=== PATIENT | female | born 1945 | race Caucasian/White ===

== ENCOUNTER 2018-12-07 17:06 | Emergency (ER) | payer MEDICARE, MEDICAID ==
--- NOTE | 2018-12-07 18:14 | CT ---
[id number] CT/CT Head WO IV EXAM: CT Head WO IV CLINICAL DATA: FALL, STRUCK HEAD AND FACE COMPARISON STUDY: July 2017. FINDINGS: Acute comminuted fracture of the bilateral nasal bones as well as the associated anterior bony nasal septum. Small amount of blood products within the underlying nasal cavities. Laceration and contusion in the overlying soft tissues. No other facial bone abnormality. No calvarial fracture. IMPRESSION: Soft tissue laceration and contusion over the nasal bone with underlying comminuted nasal bone fracture, described above. No calvarial fracture or acute intracranial hemorrhage. Andrew Dewitt MD 12/07/18 1814 Thank you for allowing us to participate in the care of your patient.
--- NOTE | 2018-12-07 20:34 | EDM.PDOC ---
ED HPI GENERAL MEDICAL PROBLEM - General Chief Complaint: Laceration Stated Complaint: FELL Time Seen by Provider: 12/07/18 17:08 Source of Information: Reports: Patient History Limitations: Reports: No Limitations - History of Present Illness INITIAL COMMENTS - FREE TEXT/NARRATIVE: Pt. presents to ER with complaints of pain to her nose. The patient fell against the door, stiking her nose. Pt. has a history of developmental delay and resides in a [facility]. Pt. had a fall in 2017 at which time she also severely fractured her nose. Pt. denies any LOC. No headache. No neck pain. Denies any numbness/tingling in extremities. No chest pain or shortness of breath. Onset: Today Onset Date: 12/07/18 Location: Reports: Face Quality: Reports: Ache Severity: Moderate - Related Data Allergies Allergy/AdvReac Type Severity Reaction Status Date / Time No Known Allergies Allergy Verified 12/07/18 17:18 Home Meds: Home Meds Enalapril [Vasotec] 10 mg PO DAILY 04/27/14 [History] Escitalopram [Lexapro] 20 mg PO DAILY 04/27/14 [History] Multivitamin [Multi Vitamin Daily] 1 each PO DAILY 04/27/14 [History] Oxybutynin Chloride [Ditropan Xl] 10 mg PO TID 04/27/14 [History] Psyllium [Metamucil] 1 tbsp PO DAILY 04/27/14 [History] hydroCHLOROthiazide [Hydrochlorothiazide] 25 mg PO DAILY 04/27/14 [History] Past Medical History HEENT History: Reports: Impaired Vision, Macular Degeneration Cardiovascular History: Reports: High Cholesterol, Hypertension Gastrointestinal History: Reports: Chronic Diarrhea Genitourinary History: Reports: Urinary Incontinence Psychiatric History: Reports: Anxiety, Other (See Below) 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, mild mental retardation Social & Family History - Tobacco Use Smoking Status *Q: Never Smoker ED ROS GENERAL - Review of Systems Review Of Systems: See Below Constitutional: Reports: No Symptoms HEENT: Reports: Nosebleed, Nose Pain Respiratory: Reports: No Symptoms Cardiovascular: Reports: No Symptoms Endocrine: Reports: No Symptoms GI/Abdominal: Reports: No Symptoms : Reports: No Symptoms Musculoskeletal: Reports: No Symptoms Skin: Reports: No Symptoms Neurological: Reports: No Symptoms Psychiatric: Reports: No Symptoms Hematologic/Lymphatic: Reports: No Symptoms Immunologic: Reports: No Symptoms ED EXAM, SKIN/RASH Exam: See Below Exam Limited By: No Limitations General Appearance: Alert, No Apparent Distress, Anxious Eye Exam: Bilateral Eye: EOMI, Normal Fundi, Normal Inspection, PERRL Ears: Normal External Exam Nose: Other (dried blood in both nares. No evidence of obvious bony trauma was visualized. Several superficial abrasions/lacerations noted to bridge of nose.) Throat/Mouth: Normal Inspection, Normal Lips, Normal Teeth (No obvious oral trauma. She does have some blood in her mouth, likely from her epistaxis.), Other Head: Atraumatic Neck: Normal Inspection, Supple, Non-Tender, Full Range of Motion Respiratory/Chest: No Respiratory Distress, Lungs Clear, Normal Breath Sounds, No Accessory Muscle Use, Chest Non-Tender Cardiovascular: Normal Peripheral Pulses, Regular Rate, Rhythm, No Edema, No Gallop, No JVD, No Murmur, No Rub Peripheral Pulses: 3+: Radial (L), Radial (R) GI/Abdominal: Normal Bowel Sounds, Soft, Non-Tender, No Organomegaly, No Distention, No Abnormal Bruit, No Mass (Female) Exam: Deferred Rectal (Female) Exam: Deferred Back Exam: Normal Inspection, Full Range of Motion, NT Extremities: Normal Inspection, Normal Range of Motion, Non-Tender, No Pedal Edema, Normal Capillary Refill Neurological: Alert, Oriented, CN II-XII Intact, Normal Cognition, Normal Gait, Normal Reflexes, No Motor/Sensory Deficits Psychiatric: Normal Affect, Normal Mood Skin: Warm, Dry, Intact Course - Vital Signs Last Recorded V/S: Last Vital Signs Temp 37.1 C 12/07/18 17:08 Pulse 82 12/07/18 17:08 Resp 18 12/07/18 17:08 BP 169/82 H 12/07/18 17:08 Pulse Ox 96 12/07/18 17:08 - Orders/Labs/Meds Orders: Active Orders 24 hr Category Date Time Status Max Facial Sinus wo Cont [CT] Stat Exams 12/07/18 17:22 Taken - Radiology Interpretation Free Text/Narrative:: CT facial bones revealed a comminuted bilateral nasal bone fracture. Departure - Departure Time of Disposition: 17:08 Disposition: Home, Self-Care 01 Condition: Good Clinical Impression: Nasal bone fractures - Discharge Information Instructions: Nasal Fracture, [id number] Referrals: Vignesh Loya MD [Primary Care Provider] - Forms: ED Department Discharge Additional Instructions: Follow-up with Dr. Kong on Sunday. Call [phone] to set up an appointment. Do not allow her to blow her nose. It is OK to ice the area if she will tolerate it. Tylenol and ibuprofen for discomfort. - My Orders Last 24 Hours: My Active Orders 12/07/18 17:22 Max Facial Sinus wo Cont [CT] Stat - Assessment/Plan Last 24 Hours: My Active Orders 12/07/18 17:22 Max Facial Sinus wo Cont [CT] Stat Plan: Follow-up with Dr. Kong on Sunday. Call [phone] to set up an appointment. Do not allow her to blow her nose. It is OK to ice the area if she will tolerate it. Tylenol and ibuprofen for discomfort.
--- NOTE | 2018-12-09 08:00 | CT ---
[id number] CT/CT Facial Bones WO IV Exam: CT Facial Bones WO IV Indication:FELL Comparison: July 2017. Discussion: Acute comminuted fracture of the nasal bone, involving the bilateral nasal bones as well as the bony nasal septum. Overlying soft tissue laceration and contusion as well as blood products in the nasal cavity. Small periapical abscess adjacent to the left central maxillary incisor. Mild/moderate changes of paranasal sinusitis. Mastoid air cells are clear. Impression: Acute comminuted nasal bone and anterior bony nasal septum fractures with soft tissue contusion/laceration. Andrew Dewitt MD 12/09/18 0759 Thank you for allowing us to participate in the care of your patient.
== END 2018-12-07 18:33 | disposition home or self-care (01) ==
LOC: VM.ED 17:06
DX: S02.2XXA Fracture of nasal bones, initial encounter for closed fracture (principal); W18.00XA Striking against unspecified object with subsequent fall, initial encounter; Z79.899 Other long term (current) drug therapy
CPT/HCPCS: 70450; 70486; 99283

== ENCOUNTER 2021-07-20 14:03 | Emergency (ER) | payer MEDICARE, MEDICAID ==
[2021-07-20] MEDS ORDERED: Bupivacaine 0.5% 30 ML SDV INJECT PRN (14:09)
[2021-07-20] MEDS ORDERED: Lidocaine 1% 30 ML SDV INJECT ONE (14:09)
--- NOTE | 2021-07-20 15:20 | EDM.PDOC ---
ED HPI GENERAL MEDICAL PROBLEM - General Chief Complaint: Upper Extremity Injury/Pain Stated Complaint: LEFT RING FINGER INJURY Time Seen by Provider: 07/20/21 14:03 Source of Information: Reports: Patient, Other (care staff) - History of Present Illness INITIAL COMMENTS - FREE TEXT/NARRATIVE: Patient comes emergency department today from the clinic for further evaluation of an injury to the left fourth finger. This patient lives at the [facility] [place] and is cognitively delayed. Either on Sunday or Sunday the patient is unsure of the staff from the [facility] is unsure but the patient fell landing on her left hand. She did not complain of any injury at that time. [facility] noted some swelling bruising and some deformity of the left finger. She was therefore brought to the clinic for evaluation. The clinic noted a rather impressive fracture of the proximal phalanx of the left fourth finger that was quite displaced and angulated and the patient was unable to flex and extend her finger. She was brought to the emergency department for further evaluation. Upon arrival the patient states that she has not taken anything for pain. She although she does complain of mild pain to the left hand. She denies any paresthesias. Left Finger-Ring Pain Score (Numeric/FACES): 2 - Related Data Allergies Allergy/AdvReac Type Severity Reaction Status Date / Time No Known Allergies Allergy Verified 07/20/21 14:29 Home Meds: Home Meds Enalapril [Vasotec] 10 mg PO DAILY 04/27/14 [History] Escitalopram [Lexapro] 20 mg PO DAILY 04/27/14 [History] Multivitamin [Multi Vitamin Daily] 1 each PO DAILY 04/27/14 [History] Oxybutynin Chloride [Ditropan Xl] 10 mg PO TID 04/27/14 [History] Psyllium [Metamucil] 1 tbsp PO DAILY 04/27/14 [History] hydroCHLOROthiazide [Hydrochlorothiazide] 25 mg PO DAILY 04/27/14 [History] Past Medical History HEENT History: Reports: Impaired Vision, Macular Degeneration Cardiovascular History: Reports: High Cholesterol, Hypertension Gastrointestinal History: Reports: Chronic Diarrhea Genitourinary History: Reports: Urinary Incontinence Psychiatric History: Reports: Anxiety, Other (See Below) 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 ED EXAM, GENERAL - Physical Exam Exam: See Below Exam Limited By: Other (Chronic cognitive delay impaired) General Appearance: Alert, WD/WN, No Apparent Distress Respiratory/Chest: No Respiratory Distress Cardiovascular: Normal Peripheral Pulses, Regular Rate, Rhythm Peripheral Pulses: 2+: Radial (L), Radial (R) Extremities: No: Normal Inspection (She has quite a bit of swelling and bruising on the proximal phalanx as well as the MPJ joint of the left hand. She is unable to flex and extend the finger. At any of the DIP PIP or MPJ point CMS is otherwise intact. The rest of the hand is unremarkable. ) Neurological: Alert, Oriented Psychiatric: Normal Affect, Normal Mood Skin Exam: Warm, Dry, Intact, Normal Color, No Rash ED TRAUMA EXTREMITY PROCEDURES - Splinting Left Upper Extremity Splint Site: left hand wrist Pre-Procedure NV Status: Normal Post-Procedure NV Status: Normal Splint Material: Fiberglass Splint Design: Other (Dorsal and volar short arm splint with stockinette well padded to the tip of the fingers in a position of neutral after attempted reduction. ) Applied & Form Fitted By: Provider Provider Post-Splint Application NV Check: NV Status Normal, Good Position Course - Vital Signs Last Recorded V/S: Last Vital Signs Temp 97.0 F 07/20/21 14:08 Pulse 74 07/20/21 14:08 Resp 18 07/20/21 14:08 BP 143/49 H 07/20/21 14:08 Pulse Ox 92 L 07/20/21 14:08 - Orders/Labs/Meds Meds: Medications Discontinued Medications Generic Name Dose Route Start Last Admin Trade Name Freq PRN Reason Stop Dose Admin Bupivacaine HCl 30 ml 07/20/21 14:07/20/21 14:25 Bupivacaine 0.5% 30 Ml Sdv INJECT 30 ml ASDIRECTED PRN Administration Other Lidocaine HCl 30 ml 07/20/21 14:07/20/21 14:25 Lidocaine 1% 30 Ml Sdv INJECT 07/20/21 14:10 30 ml ONETIME ONE Administration - Radiology Interpretation Free Text/Narrative:: Initially the x-rays are reviewed from the [facility] extemporaneously by myself. She has a proximal complete fracture of the proximal phalange E with displacement in the lateral position. Rest of this osseous regions appear to be unremarkable. Postreduction shows acute minimally displaced impacted and angulated fracture involving the base of the fourth proximal phalanx. An avulsion type fracture involving the base of the fifth middle phalanx as well. No other fractures are identified no dislocation. Per radiology postreduction film - Re-Assessments/Exams Free Text/Narrative Re-Assessment/Exam: The clinic had attempted to contact 1 call at [facility] and discussed this case with hand surgery although 1 call is not available at this time due to overrun healthcare situation. I discussed with the patient that this angulated fracture with the reduced range of motion should be attempted to be reduced. Risk and benefits of an isolated fracture block digital block were explained to the patient and her caregiver. Verbal consent was obtained. 1% lidocaine without epinephrine and 0.5% bupivacaine without epinephrine was mixed in a 50-50 fashion. The area of the left fourth MPJ joint was cleansed with iodine and allowed to dry the appropriate time period. I then injected approximately 4 mils of the above solution at the site of the fracture as well as a digital block. Patient tolerated the procedure well. No bleeding. I then attempted with manual traction manipulation and distraction to reduce the fracture. Multiple attempts were completed with multiple postreduction x-rays with some improvement. I was able to feel good reduction and straightening of the finger although quickly subluxed on its own again. Attempted reduction also with finger traps and with manual traction and weight attempted to keep the reduction in place although the reduction did not stay. Quickly subluxed again. There is no breaks in the skin. The patient tolerated the procedure well. She is able to flex at the MPJ joint as well as the DIP and PIP joints now. It is minimally displaced at this time. I again attempted to hand surgery through 1 call at [facility] although they are unavailable due to overrun of the current health care situation. I did contact the hand clinic and was able to get a follow-up for her on Sunday they will contact her tomorrow for the time after they review the films. Patient was placed in a dorsal and volar splint with the hand in the beer can position. CMS was intact after application. She does not want anything more for pain other than Tylenol and ibuprofen. Discharge directions as below are explained to the patient and her caregiver they are comfortable with this plan and their questions are answered. Departure - Departure Time of Disposition: 15:11 Disposition: Home, Self-Care 01 Clinical Impression: Proximal phalanx fracture of finger Qualifiers: Encounter type: initial encounter Finger: ring finger Fracture type: closed Fracture alignment: displaced Laterality: left Qualified Code(s): S62.615A - Displaced fracture of proximal phalanx of left ring finger, initial encounter for closed fracture - Discharge Information Instructions: RICE Therapy for Routine Care of Injuries, [id number], Finger Fracture, Adult, [id number], Cast or Splint Care, Adult, [id number], Pain Medicine Instructions, [id number] Referrals: Lorene Veras MD [Primary Care Provider] - Forms: ED Department Discharge Additional Instructions: Splint on at all times. Tylenol and or Ibuprofen as needed for pain. RICE therapy as per discharge instructions. Do not get the splint wet. Try to ice as much possible the next 3 days. Return to the ED if new or worsening symptoms. Follow up with [facility] they will call you tomorrow or sunday for follow up plans. If you dont hear from them by noon on sunday call them at [phone] Sepsis Event Note (ED) - Focused Exam Vital Signs: Vital Signs Temp Pulse Resp BP Pulse Ox 07/20/21 14:08 97.0 F 74 18 143/49 H 92 L
--- NOTE | 2021-07-20 15:27 | CR ---
[id number] RAD/RAD Hand Left 2V EXAM: 2 VIEWS LEFT HAND. INDICATION: POST REDUCTION. COMPARISON: None. DISCUSSION: Acute minimally displaced impacted and angulated fracture involving the base of the 4th proximal phalanx. Avulsion type fracture involving the base of the 5th middle phalanx. No other fractures are identified. No dislocation. IMPRESSION: 1. As above. David Morales DO 07/20/21 1524 Thank you for allowing us to participate in the care of your patient.
== END 2021-07-20 15:27 | disposition home or self-care (01) ==
LOC: VM.ED 14:03
DX: S62.615A Displaced fracture of proximal phalanx of left ring finger, initial encounter for closed fracture (principal); I10 Essential (primary) hypertension; W18.39XA Other fall on same level, initial encounter
CPT/HCPCS: 29125; 73120-LT; 99283; 99283-25; J3490

== ENCOUNTER 2022-09-03 19:37 | Emergency (ER) | payer MEDICARE, MEDICAID ==
[2022-09-03 20:57] LABS: CHLORIDE,CL 93 mmol/L (98-107)
[2022-09-03 20:59] LABS: ESTIMATED GFR 92 mL/min (>=60)
[2022-09-03 21:00] LABS: SODIUM,NA 127 mmol/L (136-145)
[2022-09-03] MEDS: Sodium Chloride 0.9% 1,000 ML IV SCH (21:30)
== END 2022-09-03 22:00 | disposition home or self-care (01) ==
LOC: VM.ED 19:37
DX: E87.1 Hypo-osmolality and hyponatremia (principal); I10 Essential (primary) hypertension; Z79.899 Other long term (current) drug therapy
CPT/HCPCS: 36415; 80053; 81003; 82550; 83615; 83735; 84484; 85025; 86140; 93005; 93010; 99284; 99285; J7030

== ENCOUNTER 2022-11-08 11:27 | Observation (INO) | payer MEDICARE, MEDICAID ==
[2022-11-08] MEDS ORDERED: Polyethylene Glycol 3350 Powder 17 GM Packet PO ONE (14:36)
[2022-11-08] MEDS ORDERED: Acetaminophen 325 MG Tab PO PRN (15:07)
[2022-11-08] MEDS: POLYETHYLENE GLYCOL PO SCH ×6 (15:27→21:01)
[2022-11-08] MEDS: OXYBUTYNIN 5 MG PO SCH (20:04)
[2022-11-08] MEDS ORDERED: MELATONIN 3 MG PO SCH (21:00)
[2022-11-08] MEDS ORDERED: traZODone 50 MG Tab (OWN SUPPLY) PO SCH (21:00)
[2022-11-08] MEDS ORDERED: Gabapentin 100 MG Cap (OWN SUPPLY) PO SCH (21:00)
[2022-11-08] MEDS ORDERED: ESCITALOPRAM OXALATE 20 MG PO SCH (21:00)
[2022-11-09 07:09] LABS: ANION GAP 9.4 mmol/L (5-15)
[2022-11-09] MEDS ORDERED: ATORVASTATIN 20 MG PO SCH (09:00)
[2022-11-09] MEDS ORDERED: MULTIVITAMIN PO SCH (09:00)
[2022-11-09] MEDS ORDERED: ENALAPRIL 5 MG PO SCH (09:00)
[2022-11-09] MEDS ORDERED: PSYLLIUM HUSK PO SCH (09:00)
[2022-11-09] MEDS: OXYBUTYNIN 5 MG PO SCH ×2 (10:19→13:22)
[2022-11-11] MEDS ORDERED: Alendronate 70 MG Tab PO SCH (08:00)
== END 2022-11-09 14:00 | disposition home or self-care (01) ==
LOC: VM.MS 13:25
PROVIDERS: ADMIT Family Medicine; ATTEND Family Medicine
DX: K59.00 Constipation, unspecified (principal); N32.81 Overactive bladder; R41.89 Other symptoms and signs involving cognitive functions and awareness; F41.9 Anxiety disorder, unspecified; I10 Essential (primary) hypertension; E78.00 Pure hypercholesterolemia, unspecified; F79 Unspecified intellectual disabilities; Z79.899 Other long term (current) drug therapy
CPT/HCPCS: 36415; 80048; 85025; A9270; G0378; G0379

== ENCOUNTER 2023-03-16 08:05 | Day surgery (SDC) | payer MEDICARE, MEDICAID ==
[~2023-03-16 08:05] MED LIST: Lactated Ringers 1,000 ML IV SCH
[2023-03-16] MEDS ORDERED: Propofol 200 MG/20 ML SDV ONE (10:31)
== END 2023-03-16 12:15 ==
LOC: VM.SDS 08:05
PROVIDERS: ATTEND Student in an Organized Health Care Education/Training Program
DX: D12.3 Benign neoplasm of transverse colon (principal); K63.5 Polyp of colon; K52.9 Noninfective gastroenteritis and colitis, unspecified; K63.89 Other specified diseases of intestine; S52.515A Nondisplaced fracture of left radial styloid process, initial encounter for closed fracture; S52.135A Nondisplaced fracture of neck of left radius, initial encounter for closed fracture; R45.1 Restlessness and agitation; E78.5 Hyperlipidemia, unspecified; I10 Essential (primary) hypertension; F41.9 Anxiety disorder, unspecified; Z79.899 Other long term (current) drug therapy
CPT/HCPCS: 00811; 88305; J2704; J7120

== ENCOUNTER 2023-08-13 21:27 | Emergency (ER) | payer MEDICARE, MEDICAID | END 2023-08-13 22:31 | disposition home or self-care (01) | LOC: VM.ED 21:27 | DX: S01.81XA Laceration without foreign body of other part of head, initial encounter (principal); I10 Essential (primary) hypertension; E78.00 Pure hypercholesterolemia, unspecified; Z79.899 Other long term (current) drug therapy; W19.XXXA Unspecified fall, initial encounter | CPT/HCPCS: 12011; 99283; 99284 ==

== ENCOUNTER 2023-11-26 21:14 | Emergency (ER) | payer MEDICARE, MEDICAID ==
[2023-11-26] MEDS ORDERED: Lidocaine 1% 30 ML SDV INJECT ONE (21:21)
== END 2023-11-26 22:15 ==
LOC: VM.ED 21:14
DX: S01.81XA Laceration without foreign body of other part of head, initial encounter (principal); I10 Essential (primary) hypertension; E78.00 Pure hypercholesterolemia, unspecified; Z79.899 Other long term (current) drug therapy; W50.0XXA Accidental hit or strike by another person, initial encounter
CPT/HCPCS: 12013; 70450; 99283; 99285; J3490

== ENCOUNTER 2025-02-19 13:13 | Inpatient (IN) | payer MEDICARE, MEDICAID ==
[2025-02-19 14:31] LABS: BASOPHILS PERCENT AUTO 0.3 % (0.2-1.2); EOSINOPHILS PERCENT AUTO 0.1 % (0.0-4.0); HEMATOCRIT 36.5 % (33.0-47.0); HEMOGLOBIN 12.5 g/dL (12.0-16.0); IMMATURE GRAN ABSOLUTE AUTO 0.02 x10^3/uL (0.00-0.07); LYMPHOCYTES ABSOLUTE AUTO 1.8 x10^3/uL (1.0-4.8); LYMPHOCYTES PERCENT AUTO 17.8 % (25.0-50.0); MEAN CORPUSCULAR HEMOGLOBIN 32.5 pg (26.0-32.0); MEAN CORPUSCULAR HGB CONC 34.2 g/dL (32.0-36.0); MEAN CORPUSCULAR VOLUME 94.8 fL (78.0-93.0); MONOCYTES ABSOLUTE AUTO 0.8 x10^3/uL (0.0-0.8); NEUTROPHILS ABSOLUTE AUTO 7.6 x10^3/uL (1.8-7.7); NEUTROPHILS PERCENT AUTO 73.6 % (50.0-80.0); PLATELET COUNT,PLT 452 x10^3/uL (130-400); RED BLOOD CELL COUNT 3.85 x10^6/uL (4.00-5.50); WHITE BLOOD CELL COUNT,WBC 10.3 x10^3/uL (4.0-10.0)
[2025-02-19 14:37] LABS: A/G RATIO 0.68; ALANINE AMINOTRANSFERASE,ALT 20 U/L (14-59); ALBUMIN 2.6 g/dL (3.4-5.0); ALKALINE PHOSPHATASE 103 U/L (46-116); ASPARTATE AMNIOTRANSFERASE,AST 22 U/L (15-37); BILIRUBIN TOTAL 0.5 mg/dL (0.2-1.0); BLOOD UREA NITROGEN,BUN 6 mg/dL (7-18); CALCIUM 8.2 mg/dL (8.5-10.1); CARBON DIOXIDE,CO2 29 mmol/L (21-32); CHLORIDE,CL 91 mmol/L (98-107); CREATININE 0.8 mg/dL (0.55-1.02); ESTIMATED GFR 75 mL/min (>=60); GLUCOSE RANDOM 105 mg/dL (70-99); PROTEIN TOTAL,TP 6.4 g/dL (6.4-8.2)
[2025-02-19 14:39] LABS: SODIUM,NA 126 mmol/L (136-145)
[2025-02-19] MEDS: Sodium Chloride 0.9% 1,000 ML IV ONE (14:45)
[2025-02-19 14:46] LABS: LIPASE 31 U/L (19-71); MAGNESIUM 2.1 mg/dL (1.8-2.4)
[2025-02-19] MEDS ORDERED: Ondansetron 4 MG Tab.DIS PO PRN (17:12)
[2025-02-19] MEDS ORDERED: Ondansetron 4 MG/2 ML SDV IV PRN (17:12)
[2025-02-19] MEDS ORDERED: Sodium Chloride 0.9% 1,000 ML IV SCH (17:15)
[2025-02-19] MEDS ORDERED: LOPERAMIDE 2 MG PO PRN (17:26)
[2025-02-19] MEDS: Acetaminophen 325 MG Tab PO SCH (20:31)
[2025-02-19] MEDS: EYELID CLEANSER COMBINATION EYEBOTH SCH (20:39)
[2025-02-19] MEDS: Melatonin 3 MG Tab PO PRN (23:34)
[2025-02-20 07:05] LABS: BASOPHILS PERCENT AUTO 0.2 % (0.2-1.2); EOSINOPHILS PERCENT AUTO 0.2 % (0.0-4.0); HEMATOCRIT 33.5 % (33.0-47.0); HEMOGLOBIN 11.6 g/dL (12.0-16.0); IMMATURE GRAN ABSOLUTE AUTO 0.02 x10^3/uL (0.00-0.07); LYMPHOCYTES ABSOLUTE AUTO 1.4 x10^3/uL (1.0-4.8); LYMPHOCYTES PERCENT AUTO 15.1 % (25.0-50.0); MEAN CORPUSCULAR HGB CONC 34.6 g/dL (32.0-36.0); MEAN CORPUSCULAR VOLUME 95.2 fL (78.0-93.0); MONOCYTES ABSOLUTE AUTO 0.8 x10^3/uL (0.0-0.8); MONOCYTES PERCENT AUTO 8.5 % (2.0-11.0); NEUTROPHILS ABSOLUTE AUTO 6.9 x10^3/uL (1.8-7.7); NEUTROPHILS PERCENT AUTO 75.8 % (50.0-80.0); PLATELET COUNT,PLT 395 x10^3/uL (130-400); RED BLOOD CELL COUNT 3.52 x10^6/uL (4.00-5.50); WHITE BLOOD CELL COUNT,WBC 9.1 x10^3/uL (4.0-10.0)
[2025-02-20 07:25] LABS: CALCIUM 7.9 mg/dL (8.5-10.1); CREATININE 0.6 mg/dL (0.55-1.02); EST CRCL DRUG DOSING (CG) 54.61 mL/min; POTASSIUM,K 3.6 mmol/L (3.5-5.1)
[2025-02-20 07:28] LABS: ANION GAP 12.6 mmol/L (5-15)
[2025-02-20] MEDS ORDERED: PSYLLIUM HUSK PO SCH (09:00)
[2025-02-20] MEDS ORDERED: Non-Formulary Medication 1 Each (Atorvastatin [Lipitor] 20 MG Tablet) PO SCH (09:00)
[2025-02-20] MEDS ORDERED: [UNRECOGNIZED DRUG - OTHER] PO SCH (09:00)
[2025-02-20] MEDS: Gabapentin 100 MG Cap PO SCH (09:53)
[2025-02-20] MEDS: amLODIPine 5 MG Tab PO SCH (09:53)
[2025-02-20] MEDS ORDERED: Acetaminophen 325 MG Tab PO PRN (09:58)
[2025-02-20] MEDS ORDERED: Loperamide 2 MG Cap PO PRN (09:59)
[2025-02-20] MEDS: atorvaSTATin 10 MG Tab PO SCH (10:01)
[2025-02-20] MEDS: Psyllium Husk Powder Sugar Free 5.85 GM Packet PO SCH (10:02)
[2025-02-20 10:50] LABS: APPEARANCE,URINE CLOUDY (CLEAR); BILIRUBIN,URINE SMALL (NEGATIVE); COLOR,URINE YELLOW (YELLOW); GLUCOSE,URINE NEGATIVE (NEGATIVE); KETONES,URINE >=160 mg/dL (NEGATIVE); LEUKOCYTE ESTERASE,URINE LARGE (NEGATIVE); NITRITE,URINE NEGATIVE (NEGATIVE); OCCULT BLOOD,URINE MODERATE (NEGATIVE); PH,URINE 5.5 (5.0-8.0); PROTEIN,URINE 100 mg/dL (NEGATIVE); UROBILINOGEN,URINE 0.2 EU/dL (0.2)
[2025-02-20 10:51] LABS: BACTERIA,URINE OCCASIONAL /HPF (NOT SEEN); SQUAMOUS EPITHELIAL CELLS,UR OCCASIONAL /HPF (NOT SEEN); WBC,URINE 75-100 /HPF (NOT SEEN)
[2025-02-20] MEDS: fluvoxaMINE 100 MG Tab PO SCH (11:31)
[2025-02-20] MEDS: Sulfamethoxazole/Trimethoprim 800-160 MG Tab PO SCH (11:32)
[2025-02-20] MEDS ORDERED: Enoxaparin 40 MG/0.4 ML Syringe SUBCUT SCH (12:00)
[2025-02-21] MEDS ORDERED: amLODIPine 10 MG Tab PO SCH (09:00)
== END 2025-02-20 13:40 | disposition home or self-care (01) | DRG 392 ==
LOC: VM.ED 13:13 → VM.MS 16:14
PROVIDERS: ADMIT Internal Medicine; ATTEND Family Medicine
DX: K56.609 Unspecified intestinal obstruction, unspecified as to partial versus complete obstruction (principal); A08.4 Viral intestinal infection, unspecified; E87.1 Hypo-osmolality and hyponatremia; F03.94 Unspecified dementia, unspecified severity, with anxiety; N39.0 Urinary tract infection, site not specified; Z66 Do not resuscitate; H54.7 Unspecified visual loss; E78.00 Pure hypercholesterolemia, unspecified; K59.09 Other constipation; I10 Essential (primary) hypertension; F42.9 Obsessive-compulsive disorder, unspecified; E86.0 Dehydration; Z79.899 Other long term (current) drug therapy; Z87.81 Personal history of (healed) traumatic fracture; Z98.890 Other specified postprocedural states
CPT/HCPCS: 74176; 80053; 83605; 83690; 83735; 85025; 96360; 99285; J7030; 36415; 80048; 81001; 84295; 87070; 87086; 99284; A9270-GY; C1758; Q3014

== ENCOUNTER 2025-02-27 10:42 | Inpatient (IN) | payer MEDICARE, MEDICAID ==
[2025-02-27] MEDS ORDERED: Sodium Chloride 0.9% 10 ML Syringe FLUSH PRN (11:09)
[2025-02-27] MEDS: Ondansetron 4 MG/2 ML SDV IVPUSH ONE (11:15)
[2025-02-27] MEDS: Lactated Ringers 1,000 ML IV ONE (11:15)
[2025-02-27 11:16] LABS: BASOPHILS PERCENT AUTO 0.2 % (0.2-1.2); EOSINOPHILS PERCENT AUTO 0.2 % (0.0-4.0); HEMATOCRIT 35.5 % (33.0-47.0); HEMOGLOBIN 12.3 g/dL (12.0-16.0); IMMATURE GRAN ABSOLUTE AUTO 0.04 x10^3/uL (0.00-0.07); LYMPHOCYTES ABSOLUTE AUTO 1.5 x10^3/uL (1.0-4.8); LYMPHOCYTES PERCENT AUTO 11.2 % (25.0-50.0); MEAN CORPUSCULAR HEMOGLOBIN 32.5 pg (26.0-32.0); MEAN CORPUSCULAR HGB CONC 34.6 g/dL (32.0-36.0); MEAN CORPUSCULAR VOLUME 93.9 fL (78.0-93.0); NEUTROPHILS ABSOLUTE AUTO 10.5 x10^3/uL (1.8-7.7); NEUTROPHILS PERCENT AUTO 80.1 % (50.0-80.0); PLATELET COUNT,PLT 524 x10^3/uL (130-400); RED BLOOD CELL COUNT 3.78 x10^6/uL (4.00-5.50); WHITE BLOOD CELL COUNT,WBC 13.1 x10^3/uL (4.0-10.0)
[2025-02-27 11:37] LABS: INR 1.1 (0.9-1.1); PROTHROMBIN TIME 11.6 SEC (9.6-12.0); PTT,PARTIAL THROMBOPLSTIN TIME 30.2 SEC (23.5-33.2)
[2025-02-27 11:39] LABS: A/G RATIO 0.69; ALANINE AMINOTRANSFERASE,ALT 24 U/L (14-59); ALBUMIN 2.5 g/dL (3.4-5.0); ALKALINE PHOSPHATASE 109 U/L (46-116); ASPARTATE AMNIOTRANSFERASE,AST 23 U/L (15-37); BILIRUBIN TOTAL 0.3 mg/dL (0.2-1.0); BLOOD UREA NITROGEN,BUN 10 mg/dL (7-18); CALCIUM 7.8 mg/dL (8.5-10.1); CARBON DIOXIDE,CO2 31 mmol/L (21-32); CHLORIDE,CL 86 mmol/L (98-107); CREATININE 0.9 mg/dL (0.55-1.02); GLUCOSE RANDOM 80 mg/dL (70-99); LIPASE 30 U/L (19-71); MAGNESIUM 1.9 mg/dL (1.8-2.4); POTASSIUM,K 3.5 mmol/L (3.5-5.1); PROTEIN TOTAL,TP 6.1 g/dL (6.4-8.2)
[2025-02-27 11:42] LABS: ANION GAP 11.5 mmol/L (5-15); ESTIMATED GFR 65 mL/min (>=60); SODIUM,NA 125 mmol/L (136-145)
[2025-02-27 11:43] LABS: LACTIC ACID 2.4 mmol/L (0.4-2.0)
[2025-02-27] MEDS: HYDROmorphone 0.5 MG/0.5 ML Syringe IVPUSH ONE (12:02)
[2025-02-27 12:13] LABS: APPEARANCE,URINE SLIGHTLY CLOUDY (CLEAR); BILIRUBIN,URINE NEGATIVE (NEGATIVE); COLOR,URINE YELLOW (YELLOW); GLUCOSE,URINE NEGATIVE (NEGATIVE); KETONES,URINE NEGATIVE (NEGATIVE); LEUKOCYTE ESTERASE,URINE NEGATIVE (NEGATIVE); NITRITE,URINE NEGATIVE (NEGATIVE); OCCULT BLOOD,URINE SMALL (NEGATIVE); PROTEIN,URINE NEGATIVE (NEGATIVE); UROBILINOGEN,URINE 0.2 EU/dL (0.2)
[2025-02-27 12:25] LABS: BACTERIA,URINE FEW /HPF (NOT SEEN); SQUAMOUS EPITHELIAL CELLS,UR RARE /HPF (NOT SEEN); WBC,URINE 0-5 /HPF (NOT SEEN)
[2025-02-27 12:26] LABS: MUCUS,URINE MODERATE /LPF (NOT SEEN)
[2025-02-27] MEDS: droPERidol 5 MG/2 ML SDV IVPUSH ONE (12:32)
[2025-02-27] MEDS: Lactated Ringers 1,000 ML IV SCH (14:30)
[2025-02-27] MEDS ORDERED: Ondansetron 4 MG Tab.DIS PO PRN (15:09)
[2025-02-27] MEDS: Acetaminophen 325 MG Tab PO SCH (16:42)
[2025-02-27] MEDS ORDERED: Acetaminophen 325 MG Tab PO SCH (21:00)
[2025-02-28 08:16] LABS: BASOPHILS PERCENT AUTO 0.3 % (0.2-1.2); EOSINOPHILS ABSOLUTE AUTO 0.1 x10^3/uL (0.0-0.5); EOSINOPHILS PERCENT AUTO 0.6 % (0.0-4.0); HEMATOCRIT 32.9 % (33.0-47.0); HEMOGLOBIN 10.9 g/dL (12.0-16.0); IMMATURE GRAN ABSOLUTE AUTO 0.02 x10^3/uL (0.00-0.07); LYMPHOCYTES PERCENT AUTO 12.7 % (25.0-50.0); MEAN CORPUSCULAR HEMOGLOBIN 31.8 pg (26.0-32.0); MEAN CORPUSCULAR HGB CONC 33.1 g/dL (32.0-36.0); MEAN CORPUSCULAR VOLUME 95.9 fL (78.0-93.0); MONOCYTES ABSOLUTE AUTO 0.5 x10^3/uL (0.0-0.8); NEUTROPHILS ABSOLUTE AUTO 6.2 x10^3/uL (1.8-7.7); NEUTROPHILS PERCENT AUTO 80.1 % (50.0-80.0); PLATELET COUNT,PLT 423 x10^3/uL (130-400); RED BLOOD CELL COUNT 3.43 x10^6/uL (4.00-5.50); WHITE BLOOD CELL COUNT,WBC 7.7 x10^3/uL (4.0-10.0)
[2025-02-28 08:38] LABS: A/G RATIO 0.68; ALBUMIN 2.1 g/dL (3.4-5.0); BILIRUBIN TOTAL 0.2 mg/dL (0.2-1.0); CALCIUM 7.6 mg/dL (8.5-10.1); CREATININE 0.6 mg/dL (0.55-1.02); EST CRCL DRUG DOSING (CG) 57.6 mL/min; MAGNESIUM 1.8 mg/dL (1.8-2.4); PROTEIN TOTAL,TP 5.2 g/dL (6.4-8.2)
[2025-02-28] MEDS: Enoxaparin 40 MG/0.4 ML Syringe SUBCUT SCH (09:52)
[2025-02-28] MEDS: Gabapentin 100 MG Cap PO SCH (09:52)
[2025-03-01 08:13] LABS: BASOPHILS PERCENT AUTO 0.1 % (0.2-1.2); EOSINOPHILS PERCENT AUTO 0.5 % (0.0-4.0); HEMATOCRIT 33.9 % (33.0-47.0); HEMOGLOBIN 11.3 g/dL (12.0-16.0); IMMATURE GRAN ABSOLUTE AUTO 0.03 x10^3/uL (0.00-0.07); LYMPHOCYTES ABSOLUTE AUTO 1.1 x10^3/uL (1.0-4.8); LYMPHOCYTES PERCENT AUTO 13.1 % (25.0-50.0); MEAN CORPUSCULAR HEMOGLOBIN 32.5 pg (26.0-32.0); MEAN CORPUSCULAR HGB CONC 33.3 g/dL (32.0-36.0); MEAN CORPUSCULAR VOLUME 97.4 fL (78.0-93.0); MONOCYTES ABSOLUTE AUTO 0.4 x10^3/uL (0.0-0.8); MONOCYTES PERCENT AUTO 4.2 % (2.0-11.0); NEUTROPHILS ABSOLUTE AUTO 6.8 x10^3/uL (1.8-7.7); NEUTROPHILS PERCENT AUTO 81.7 % (50.0-80.0); PLATELET COUNT,PLT 451 x10^3/uL (130-400); RED BLOOD CELL COUNT 3.48 x10^6/uL (4.00-5.50); WHITE BLOOD CELL COUNT,WBC 8.3 x10^3/uL (4.0-10.0)
[2025-03-01 08:37] LABS: A/G RATIO 0.59; ALBUMIN 1.9 g/dL (3.4-5.0); BILIRUBIN TOTAL 0.2 mg/dL (0.2-1.0); CALCIUM 7.3 mg/dL (8.5-10.1); CREATININE 0.5 mg/dL (0.55-1.02); EST CRCL DRUG DOSING (CG) 72.71 mL/min; POTASSIUM,K 3.9 mmol/L (3.5-5.1); PROTEIN TOTAL,TP 5.1 g/dL (6.4-8.2)
[2025-03-01 08:39] LABS: ANION GAP 7.9 mmol/L (5-15)
[2025-03-01] MEDS: Ondansetron 4 MG/2 ML SDV IVPUSH PRN (20:34)
[2025-03-02 07:05] LABS: BASOPHILS PERCENT AUTO 0.3 % (0.2-1.2); EOSINOPHILS ABSOLUTE AUTO 0.1 x10^3/uL (0.0-0.5); EOSINOPHILS PERCENT AUTO 0.8 % (0.0-4.0); HEMATOCRIT 33.3 % (33.0-47.0); HEMOGLOBIN 11.2 g/dL (12.0-16.0); IMMATURE GRAN ABSOLUTE AUTO 0.03 x10^3/uL (0.00-0.07); LYMPHOCYTES ABSOLUTE AUTO 1.4 x10^3/uL (1.0-4.8); LYMPHOCYTES PERCENT AUTO 18.6 % (25.0-50.0); MEAN CORPUSCULAR HEMOGLOBIN 32.8 pg (26.0-32.0); MEAN CORPUSCULAR HGB CONC 33.6 g/dL (32.0-36.0); MEAN CORPUSCULAR VOLUME 97.7 fL (78.0-93.0); MONOCYTES ABSOLUTE AUTO 0.6 x10^3/uL (0.0-0.8); MONOCYTES PERCENT AUTO 7.9 % (2.0-11.0); NEUTROPHILS ABSOLUTE AUTO 5.3 x10^3/uL (1.8-7.7); PLATELET COUNT,PLT 417 x10^3/uL (130-400); RED BLOOD CELL COUNT 3.41 x10^6/uL (4.00-5.50); WHITE BLOOD CELL COUNT,WBC 7.4 x10^3/uL (4.0-10.0)
[2025-03-02 07:29] LABS: A/G RATIO 0.61; ALBUMIN 1.9 g/dL (3.4-5.0); BILIRUBIN TOTAL 0.2 mg/dL (0.2-1.0); CALCIUM 7.6 mg/dL (8.5-10.1); CREATININE 0.6 mg/dL (0.55-1.02); EST CRCL DRUG DOSING (CG) 57.6 mL/min; POTASSIUM,K 3.7 mmol/L (3.5-5.1)
[2025-03-02 07:38] LABS: ANION GAP 7.7 mmol/L (5-15)
== END 2025-03-02 11:20 | DRG 392 ==
LOC: VM.ED 10:42 → VM.MS 13:16
PROVIDERS: ADMIT Family Medicine; ATTEND Family Medicine
DX: A08.4 Viral intestinal infection, unspecified (principal); I10 Essential (primary) hypertension; F03.94 Unspecified dementia, unspecified severity, with anxiety; E87.1 Hypo-osmolality and hyponatremia; E87.20 Acidosis, unspecified; F42.9 Obsessive-compulsive disorder, unspecified; F41.9 Anxiety disorder, unspecified; M81.0 Age-related osteoporosis without current pathological fracture; E78.00 Pure hypercholesterolemia, unspecified; K59.09 Other constipation; F15.90 Other stimulant use, unspecified, uncomplicated; Z66 Do not resuscitate; E86.0 Dehydration; Z79.1 Long term (current) use of non-steroidal anti-inflammatories (NSAID); Z79.02 Long term (current) use of antithrombotics/antiplatelets; Z87.81 Personal history of (healed) traumatic fracture; Z79.899 Other long term (current) drug therapy
CPT/HCPCS: 36415; 51701; 70450; 80053; 81001; 83605; 83690; 83735; 85025; 85610; 85730; 87070; 96361; 96374; 96375; 99284; 99285-25; A9270-GY; C1758; J1650; J1790; J2405; J7120

== ENCOUNTER 2025-03-18 16:41 | Inpatient (IN) | payer MEDICARE, MEDICAID ==
[2025-03-18] MEDS ORDERED: Sodium Chloride 0.9% 10 ML Syringe FLUSH PRN (16:50)
[2025-03-18] MEDS: Sodium Chloride 0.9% 1,000 ML IV ONE (17:56)
[2025-03-18] MEDS: cefTRIAXone 2 GM Vial IVPUSH SCH (18:02)
[2025-03-18] MEDS: Sodium Chloride 0.9% 1,000 ML IV SCH (19:05)
[2025-03-18] MEDS ORDERED: Polyethylene Glycol 3350 Powder 17 GM Packet PO PRN (19:35)
[2025-03-18] MEDS ORDERED: Loperamide 2 MG Cap PO PRN (19:35)
[2025-03-18] MEDS ORDERED: Ondansetron 4 MG Tab.DIS PO PRN (19:35)
[2025-03-18] MEDS ORDERED: Bisacodyl 10 MG Supp RECTAL PRN (19:35)
[2025-03-18] MEDS ORDERED: Magnesium Hydroxide 400 MG/5 ML Susp 30 ML Cup PO PRN (19:35)
[2025-03-18] MEDS ORDERED: Bisacodyl 5 MG Tab PO PRN (19:35)
[2025-03-18] MEDS ORDERED: Menthol/Zinc Oxide Ointment 3.5 GM Tube TOP PRN (19:35)
[2025-03-18] MEDS: Acetaminophen 325 MG Tab PO SCH (22:09)
[2025-03-18] MEDS: Calcium Citrate/Vitamin D3 315 MG-250 Unit Tab PO SCH (22:10)
[2025-03-18] MEDS: Gabapentin 100 MG Cap PO SCH (22:13)
[2025-03-18] MEDS: Lactobacillus Rhamnosus GG (Probiotic) Cap PO SCH (22:14)
[2025-03-18] MEDS: Menthol/Zinc Oxide Ointment 3.5 GM Tube TOP SCH (22:14)
[2025-03-18 23:34] LABS: LACTIC ACID 3.3 mmol/L (0.4-2.0)
[2025-03-19] MEDS: Pantoprazole 40 MG Tab.CR PO SCH (06:32)
[2025-03-19 06:59] LABS: BASOPHILS PERCENT AUTO 0.1 % (0.2-1.2); EOSINOPHILS PERCENT AUTO 0.1 % (0.0-4.0); HEMATOCRIT 26.4 % (33.0-47.0); IMMATURE GRAN ABSOLUTE AUTO 0.02 x10^3/uL (0.00-0.07); LYMPHOCYTES ABSOLUTE AUTO 1.4 x10^3/uL (1.0-4.8); LYMPHOCYTES PERCENT AUTO 16.8 % (25.0-50.0); MEAN CORPUSCULAR HEMOGLOBIN 32.1 pg (26.0-32.0); MEAN CORPUSCULAR HGB CONC 34.1 g/dL (32.0-36.0); MEAN CORPUSCULAR VOLUME 94.3 fL (78.0-93.0); MONOCYTES ABSOLUTE AUTO 0.7 x10^3/uL (0.0-0.8); MONOCYTES PERCENT AUTO 8.5 % (2.0-11.0); NEUTROPHILS ABSOLUTE AUTO 6.2 x10^3/uL (1.8-7.7); NEUTROPHILS PERCENT AUTO 74.3 % (50.0-80.0); PLATELET COUNT,PLT 403 x10^3/uL (130-400); WHITE BLOOD CELL COUNT,WBC 8.4 x10^3/uL (4.0-10.0)
[2025-03-19 07:25] LABS: A/G RATIO 0.57; ALBUMIN 1.6 g/dL (3.4-5.0); ANION GAP 9.4 mmol/L (5-15); BILIRUBIN TOTAL 0.2 mg/dL (0.2-1.0); CALCIUM 7.1 mg/dL (8.5-10.1); CREATININE 0.5 mg/dL (0.55-1.02); EST CRCL DRUG DOSING (CG) 68.14 mL/min; POTASSIUM,K 3.4 mmol/L (3.5-5.1); PROTEIN TOTAL,TP 4.4 g/dL (6.4-8.2)
[2025-03-19] MEDS ORDERED: Gabapentin 100 MG Cap PO SCH (09:00)
[2025-03-19] MEDS: atorvaSTATin 10 MG Tab PO SCH (09:18)
[2025-03-19] MEDS: Multivitamin Tab PO SCH (09:18)
[2025-03-19] MEDS: amLODIPine 10 MG Tab PO SCH (09:18)
[2025-03-19] MEDS: Psyllium Husk Powder Sugar Free 5.85 GM Packet PO SCH (09:35)
[2025-03-19] MEDS: Memantine 10 MG Tab PO SCH (12:07)
[2025-03-19] MEDS: Potassium Chloride 10 MEQ Tab.ER PO ONE (12:07)
[2025-03-20 06:48] LABS: HEMATOCRIT 31.7 % (33.0-47.0); HEMOGLOBIN 9.9 g/dL (12.0-16.0); MEAN CORPUSCULAR HEMOGLOBIN 31.8 pg (26.0-32.0); MEAN CORPUSCULAR HGB CONC 31.2 g/dL (32.0-36.0); MEAN CORPUSCULAR VOLUME 101.9 fL (78.0-93.0); RED BLOOD CELL COUNT 3.11 x10^6/uL (4.00-5.50); WHITE BLOOD CELL COUNT,WBC 5.2 x10^3/uL (4.0-10.0)
[2025-03-20 07:05] LABS: ANION GAP 10.6 mmol/L (5-15); CALCIUM 7.4 mg/dL (8.5-10.1); CREATININE 0.5 mg/dL (0.55-1.02); EST CRCL DRUG DOSING (CG) 66.9 mL/min; POTASSIUM,K 3.6 mmol/L (3.5-5.1)
[2025-03-21] MEDS ORDERED: Alendronate 70 MG Tab PO SCH (06:00)
== END 2025-03-20 12:55 | DRG 690 ==
LOC: VM.MS 16:43 → UNDOADMIN 17:25 → VM.MS 17:25
PROVIDERS: ADMIT Nurse Practitioner Family; ATTEND Family Medicine
DX: N30.00 Acute cystitis without hematuria (principal); E87.1 Hypo-osmolality and hyponatremia; F03.94 Unspecified dementia, unspecified severity, with anxiety; E87.20 Acidosis, unspecified; Z66 Do not resuscitate; F41.9 Anxiety disorder, unspecified; I10 Essential (primary) hypertension; M81.0 Age-related osteoporosis without current pathological fracture; H54.7 Unspecified visual loss; F63.3 Trichotillomania; E78.00 Pure hypercholesterolemia, unspecified; F42.9 Obsessive-compulsive disorder, unspecified; E87.6 Hypokalemia; K59.09 Other constipation; Z98.890 Other specified postprocedural states; Z79.899 Other long term (current) drug therapy
CPT/HCPCS: 36415; 80048; 80053; 83605; 85025; 85027; 87040; 87070; A9270-GY; J0696; J7030

== ENCOUNTER 2025-10-22 18:04 | Emergency (ER) | payer MEDICARE, MEDICAID ==
[2025-10-22 18:27] LABS: BASOPHILS ABSOLUTE AUTO 0.0 x10^3/uL (0.0-0.2); BASOPHILS PERCENT AUTO 0.6 % (0.2-1.2); EOSINOPHILS ABSOLUTE AUTO 0.1 x10^3/uL (0.0-0.5); EOSINOPHILS PERCENT AUTO 2.3 % (0.0-4.0); IMMATURE GRAN ABSOLUTE AUTO 0.01 x10^3/uL (0.00-0.07); IMMATURE GRAN PERCENT AUTO 0.20 % (0.00-0.43); LYMPHOCYTES ABSOLUTE AUTO 1.3 x10^3/uL (1.0-4.8); LYMPHOCYTES PERCENT AUTO 25.5 % (25.0-50.0); MONOCYTES ABSOLUTE AUTO 0.6 x10^3/uL (0.0-0.8); MONOCYTES PERCENT AUTO 12.2 % (2.0-11.0); NEUTROPHILS ABSOLUTE AUTO 3.1 x10^3/uL (1.8-7.7); NEUTROPHILS PERCENT AUTO 59.2 % (50.0-80.0); PLATELET COUNT,PLT 356 x10^3/uL (130-400); RED BLOOD CELL COUNT 4.13 x10^6/uL (4.00-5.50); WHITE BLOOD CELL COUNT,WBC 5.3 x10^3/uL (4.0-10.0)
[2025-10-22] MEDS: Betamethasone Dipropionate/Clotrimazole 0.05-1% Crm 15 GM Tube TOP STA (18:32)
[2025-10-22 18:35] LABS: GLUCOSE,URINE NEGATIVE (NEGATIVE); OCCULT BLOOD,URINE SMALL (NEGATIVE)
[2025-10-22 18:37] LABS: APPEARANCE,URINE SLIGHTLY CLOUDY (CLEAR)
[2025-10-22 18:44] LABS: A/G RATIO 0.90; ALANINE AMINOTRANSFERASE,ALT 15 U/L (14-59); ASPARTATE AMNIOTRANSFERASE,AST 13 U/L (15-37); BILIRUBIN TOTAL 0.4 mg/dL (0.2-1.0); BLOOD UREA NITROGEN,BUN 8 mg/dL (7-18); CARBON DIOXIDE,CO2 30 mmol/L (21-32); CHLORIDE,CL 94 mmol/L (98-107); CREATININE 0.7 mg/dL (0.55-1.02); GLUCOSE RANDOM 95 mg/dL (70-99); POTASSIUM,K 4.4 mmol/L (3.5-5.1); PROTEIN TOTAL,TP 7.6 g/dL (6.4-8.2); SODIUM,NA 134 mmol/L (136-145)
[2025-10-22 18:44] LABS: SQUAMOUS EPITHELIAL CELLS,UR OCCASIONAL /HPF (NOT SEEN)
[2025-10-22 18:46] LABS: ESTIMATED GFR 87 mL/min (>=60)
[2025-10-22] MEDS: cefTRIAXone 1 GM, Lidocaine 1% 2.1 ML IM ONE (19:07)
== END 2025-10-22 19:45 ==
LOC: VM.ED 18:04
DX: N30.00 Acute cystitis without hematuria (principal); B37.31 Acute candidiasis of vulva and vagina; I10 Essential (primary) hypertension; E78.00 Pure hypercholesterolemia, unspecified; Z79.899 Other long term (current) drug therapy
CPT/HCPCS: 36415; 80053; 81001; 83605; 85025; 87086; 96372; 99283; A9270; J0696; J2003; 87088; 87186